=== PATIENT | male | born 1995 | race Caucasian/White ===

== ENCOUNTER 2018-03-08 01:42 | Emergency (ER) | payer SELFPAY ==
[2018-03-08 01:45] VITALS: BP 132/86
--- NOTE | 2018-03-08 01:45 | ER Report ---
History and Physical Time Seen By MD: 01:45 HPI/ROS CHIEF COMPLAINT: alcohol intoxication, long term clearance HISTORY OF PRESENT ILLNESS: This is a 22 year old male. He is brought to the ER by [employer] [employer] for alcohol intoxication. He is laying on the gurney. Will only answer a few questions for me. He is tearful. He keeps saying , "Just fqi kill me". The other thing he says is there is "nothing to live for". He will not say anything more. He does not respond to me with my questions about medical problems or pain. The police indicate that he was drunk and crying and banging on somebody's door to try and get into the building. REVIEW OF SYSTEMS: Unable to obtain Allergies: Coded Allergies: No Known Drug Allergies (Unverified , 03/08/18) Home Meds No Active Prescriptions or Reported Meds Reviewed Nurses Notes: Yes Constitutional Vital Sign - Last 24 Hours 03/08/18 01:45 Temp 98.3 Pulse 88 Resp 14 B/P (MAP) 132/86 Pulse Ox 94 O2 Delivery Room Air Physical Exam General Appearance: Alert, intoxicated. Tearful. Eyes: Pupils equal and round with scleral injection. Pupils are reactive to light. ENT: Normal oral mucosa. Moist mucous membranes. Tympanic membranes are normal. Neck: Neck is supple and non tender. Respiratory: Chest is non tender, lungs are clear to auscultation. Cardiac: regular rate and rhythm Gastrointestinal: Abdomen is soft and appears non-tender. Genitourinary: Urinary incontinence. Musculoskeletal: No tenderness with palpation of arms, legs, ribs/trunk. Skin: No rashes or lesions. DIFFERENTIAL DIAGNOSIS: After history and physical exam differential diagnosis was considered for alcohol intoxication. Medical Decision Making ED Course/Re-evaluation ED Course He is intoxicated. Vitals are stable. He is speaking and no signs of injury or distress. He is saying some comments regarding wanting to , but not clear if suicidal at this time. Would recommend that the nurse at the long term evaluate when he is sober and if still with suicidal ideation, return to the ER for evaluation by [facility]. Decision to Disposition Date: Mar 08, 2018 Decision to Disposition Time: 01:54 Depart Departure Latest Vital Signs Vital Signs Date Time Temp Pulse Resp B/P (MAP) Pulse Ox O2 Delivery O2 Flow Rate FiO2 03/08/18 01:45 98.3 88 14 132/86 94 Room Air Impression: Primary Impression: Alcohol intoxication Condition: Condition Unchanged Disposition: [facility] TO PRISON/CORRECTIONAL F New Scripts No Active Prescriptions or Reported Meds Patient Instructions: Alcohol Intoxication (ED) Additional Instructions: Once sober, please have the nurse or other person re-evaluate to see if suicidal ideation is present. Recommend re-evaluation: if having suicidal ideation which is not related to his acute intoxication. Problem Qualifiers Primary Impression: Alcohol intoxication Complication of substance-induced condition: uncomplicated Qualified Codes: F10.920 - Alcohol use, unspecified with intoxication, uncomplicated HILDA JESUS MD Mar 08, 2018 01:45
== END 2018-03-08 02:01 ==
LOC: ER 01:45
DX: F10.920 Alcohol use, unspecified with intoxication, uncomplicated (principal)
CPT/HCPCS: 99282